=== PATIENT | female | born 1965 | race Two or more races ===

== ENCOUNTER 2024-10-26 19:02 | Inpatient (IN) | payer MEDICAID, OTHER ==
[~2024-10-26] VITALS: Ht 158.8 cm; Wt 99.6 kg
--- NOTE | 2024-10-26 20:25 | ED.PDOC ---
History of Present Illness HPI Comments 59-year-old female with PMHx CVA, CHF presents with a chief complaint of generalized weakness x 10 minutes prior to arrival with associated back pain. Patient reports that she was at dinner and began to feel increasingly weak. Patient reports that she started to feel a tingle in her face and and then back pain. Patient mentions that she was recently diagnosed with CHF. Patient is able to ambulate, but states that she right now feels extremely weak. Time Seen by MD: 20:09 Reviewed Notes: Medications, Allergies Allergies: Coded Allergies: Acetaminophen (Verified Allergy, Unknown, 10/26/24) Hydrocodone (Verified Allergy, Unknown, 10/26/24) Morphine (Verified Allergy, Unknown, 10/26/24) Information Source: Patient Mode of Arrival: Ambulatory Severity: Moderate Timing: Minutes Duration: Since onset Prehospital treatment: None Past Medical History PAST MEDICAL HISTORY: CHF, CVA Surgical History: Cholecystectomy, , Tubal Ligation Family History Family History: Reviewed,noncontributory to illness Social History Smoker: Non-Smoker Alcohol: Denies ETOH Use Drugs: Denies Drug Use Lives In: Home Constitutional: reports: weakness; denies: chills, diaphoresis, fatigue, fever, malaise, sweats, others EENTM: denies: blurred vision, double vision, ear bleeding, ear discharge, ear drainage, ear pain, ear ringing, eye pain, eye redness, hearing loss, mouth p ain, mouth swelling, nasal discharge, nose bleeding, nose congestion, nose pain, photophobia, tearing, throat pain, throat swelling, voice changes, others Respiratory: denies: cough, hemoptysis, orthopnea, SOB at rest, shortness of br eath, SOB with excertion, stridor, wheezing, others Cardiovascular: denies: chest pain, dizzy spells, diaphoresis, Dyspnea on exertion, edema, irregular heart beat, left arm pain, lightheadedness, palpitations, PND, syncope, others Gastrointestinal: denies: abdomen distended, abdominal pain, blood streaked bowels, constipated, diarrhea, dysphagia, difficulty swallowing, hematemesis, melena, nausea, poor appetite, poor fluid intake, rectal bleeding, rectal pain, vomiting, others Genitourinary: denies: burning, dysuria, flank pain, frequency, hematuria, incontinence, penile discharge, penile sore, pain, testicle pain, testicle swelling, urgency, others Neurological: denies: dizziness, fainting, headache, left sided numbness, left sided weakness, numbness, paresthesia, pre-existing deficit, right sided numbness, right sided weakness, seizure, speech problems, tingling, tremors, weakness, others Musculoskeletal: reports: back pain; denies: gout, joint pain, joint swelling, muscle pain, muscle stiffness, neck pain, others Integumetry: denies: bruises, change in color, change in hair/nails, dryness, laceration, lesions, lumps, rash, wounds, others Allergic/Immunocompromised: denies: Difficulty Healing, Frequent Infections, Hives, Itching, others Hematologic/Lymphatic: denies: anemia, blood clots, easy bleeding, easy bruisin g, swollen glands, others Endocrine: denies: excessive hunger, excessive sweating, excessive thirst, excessive urination, flushing, intolerance to cold, intolerance to heat, unexplained weight gain, unexplained weight loss, others Psychiatric: denies: anxiety, bipolar disorder, depression, hopeless, panic disorder, schizophrenia, sleepless, suicidal, others All Other Systems: Reviewed and Negative Physical Exam General Appearance: Mild Distress, Obese, Other (GENERALIZED WEAKNESS) HEENT: Normal ENT Inspection, Pharynx Normal, TMs Normal Neck: Full Range of Motion, Non-Tender, Normal, Normal Inspection Respiratory: Chest Non-Tender, Lungs Clear, No Accessory Muscle Use, No Respiratory Distress, Normal Breath Sounds Cardiovascular: No Edema, No JVD, No Murmur, No Gallop, Normal Peripheral Pulses, Regular Rate/Rhythm Breast Exam: Deferred Gastrointestinal: No Organomegaly, Non Tender, No Pulsatile Mass, Normal Bowel Sounds, Soft Genitalia: Deferred Pelvic: Deferred Rectal: Deferred Extremities: No calf tenderness, Normal capillary refill, Normal inspection, Normal range of motion, Non-tender, No pedal edema Musculoskeletal : Apperance: Normal Neurologic: Alert, hotel desk clerk II-XII nml as Tested, No Motor Deficits, Normal Affect, Normal Mood, No Sensory Deficits Cerebellar Function: Normal Reflexes: Normal Skin: Dry, Normal Color, Warm Lymphatic: No Adenopathy Was a procedure done? Was a procedure done?: No Differential Dx Considerations may include: Electrolyte abnormality, CVA, ACS, infectious etiology X-Ray, Labs, Meds, VS Vital Signs Date Time Temp Pulse Resp B/P (MAP) Pulse Ox O2 Delivery O2 Flow Rate FiO2 10/26/24 20:36 98.3 84 18 114/55 (74) 93 Lab Test 10/26/24 21:44 10/26/24 20:58 Range/Units Troponin I High Sensitivity 8 7 </=54 ng/L White Blood Count 13.1 H 4.4-10.8 10^3/uL Red Blood Count 4.66 4.5-5.90 10^6/uL Hemoglobin 13.9 13.5-17.5 g/dL Hematocrit 42.5 41.0-53.0 % Mean Corpuscular Volume 91.2 80.0-100.0 fL Mean Corpuscular Hemoglobin 29.8 28.0-32.0 pg Mean Corpuscular Hemoglobin Concent 32.6 32.0-36.0 g/dL Red Cell Distribution Width 13.9 11.8-14.3 % Platelet Count 268 140-450 10^3/uL Mean Platelet Volume 10.7 6.9-10.8 fL Neutrophils (%) (Auto) 73.7 37.0-80.0 % Lymphocytes (%) (Auto) 18.9 10.0-50.0 % Monocytes (%) (Auto) 5.2 0.0-12.0 % Eosinophils (%) (Auto) 1.0 0.0-7.0 % Basophils (%) (Auto) 1.2 0.0-2.0 % Neutrophils # (Auto) 9.7 H 1.6-8.6 10 ^3/uL Lymphocytes # (Auto) 2.5 0.4-5.4 10 ^3/uL Monocytes # (Auto) 0.7 0-1.3 10 ^3/uL Eosinophils # (Auto) 0.1 0-0.8 10 ^3/uL Basophils # (Auto) 0.2 0-0.2 10 ^3/uL Nucleated Red Blood Cells 0.0 % Sodium Level 131 L 136-145 mmol/L Potassium Level 4.4 3.5-5.1 mmol/L Chloride Level 100 98-107 mmol/L Carbon Dioxide Level 23 20-31 mmol/L Anion Gap 8 5-15 Blood Urea Nitrogen 33 H 9-23 mg/dL Creatinine 1.56 H 0.700-1.30 mg/dL Glomerular Filtration Rate Calc 51 >90 mL/min BUN/Creatinine Ratio 21.2 H 10.0-20.0 Serum Glucose 698 *H 74-106 mg/dL Calcium Level 9.0 8.7-10.4 mg/dL B-Type Natriuretic Peptide 44.86 0-100 pg/mL Time of 1ST Reevaluation: 20:39 Reevaluation 1ST: Unchanged Patient Education/Counseling: Diagnosis, Treatment, Prognosis Family Education/Counseling: No Family Present Departure 1 Departure Time of Disposition: 23:52 (Patient presented with generalized weakness today and should be admitted. Data: 1. I ordered and reviewed the result of at least 3 labs including a CBC, BMP, and troponin. 2. I independently interpreted the following tests: EKG which shows a sinus arrhythmia and a chest x-ray which shows benign chest and a CT head which shows chronic lacunar infarcts.Risk:This patient has a high risk of morbidity due to further diagnostic testing or treatment and may suffer from an acute cardiac, neurologic, or infectious disorder. Rationale: Patient should be admitted to the hospital for further management.) Impression: Primary Impression: Uncontrolled diabetes mellitus Qualified Codes: E11.65 - Type 2 diabetes mellitus with hyperglycemia Additional Impression: Generalized weakness Disposition: 09 ADMITTED INPATIENT Admit to: Med Surg Condition: Serious Critical Care Note Critical Care Time?: No Stability Stability form required: No I personally scribed for EDI MONREAL MD ([email or web address]) on 10/26/24 at 20:25. Electronically submitted by Martin Miles [email or web address]). EDI MONREAL MD Oct 26, 2024 20:25
--- NOTE | 2024-10-26 20:55 | DVH ---
CHEST RADIOGRAPH Indication: ams Technique: Single frontal view of the chest was obtained Comparison: None FINDINGS: Lines and Tubes: None Lungs: Clear Pleura: No effusion. No pneumothorax. Cardiomediastinal contours: Unremarkable Bones: Unremarkable IMPRESSION: 1. Clear lungs.
--- NOTE | 2024-10-26 21:01 | DVH ---
CT HEAD WITHOUT CONTRAST INDICATION: [facility] EXAM DATE: 10/26/2024 08:30 PM COMPARISON: None RADIATION DOSE: CTDIvol: 54.73 mGy, DLP: 768.0 mGy*cm Technique: CT scans of the head were obtained from the vertex to the skull base. Sagittal and coronal reconstructions were provided. All CT scans at this medical facility are performed using dose modulation techniques as appropriate t o a performed exam including the following: Automated exposure control was utilized; adjustment of th e MA and/or KV according to patient size; and use of iterative reconstruction technique. Findings/ IMPRESSION: Chronic lacunar infarct in the right griffith radiata. No intracranial hemorrhage, mass, midline shift, herniation. No large vessel infarct. The orbits are normal. Visualized soft tissues are unremarkable . Paranasal sinuses are clear. Mastoid air cells are clear. No acute osseous abnormalities. No acute intracranial abnormalities.
[2024-10-26 21:21] LABS: Basophils # (auto) 0.2 10 ^3/uL (0-0.2); Basophils % (auto) 1.2 % (0.0-2.0); Eosinophils # (auto) 0.1 10 ^3/uL (0-0.8); Hematocrit 42.5 % (41.0-53.0); Hemoglobin 13.9 g/dL (13.5-17.5); Lymphocytes # (auto) 2.5 10 ^3/uL (0.4-5.4); Lymphocytes % (auto) 18.9 % (10.0-50.0); Mean Corpuscular Hemoglobin 29.8 pg (28.0-32.0); Mean Corpuscular Hgb Conc. 32.6 g/dL (32.0-36.0); Mean Corpuscular Volume 91.2 fL (80.0-100.0); Monocytes # (auto) 0.7 10 ^3/uL (0-1.3); Monocytes % (auto) 5.2 % (0.0-12.0); Neutrophils # (auto) 9.7 10 ^3/uL (1.6-8.6); Neutrophils % (auto) 73.7 % (37.0-80.0); Platelet Count (auto) 268 10^3/uL (140-450); Red Blood Cells 4.66 10^6/uL (4.5-5.90); Red Cell Distribution Width 13.9 % (11.8-14.3); White Blood Cell 13.1 10^3/uL (4.4-10.8)
[2024-10-26 21:30] LABS: Chloride 100 mmol/L (98-107); Potassium 4.4 mmol/L (3.5-5.1)
[2024-10-26 21:31] LABS: Anion Gap 8 (5-15); Carbon Dioxide 23 mmol/L (20-31)
[2024-10-26 21:34] LABS: Sodium 131 mmol/L (136-145)
[2024-10-26 21:36] LABS: BUN/Creatinine Ratio 21.2 (10.0-20.0)
[2024-10-26 21:50] LABS: Blood Urea Nitrogen 33 mg/dL (9-23)
[2024-10-26 21:55] LABS: Glucose 698 mg/dL (74-106)
[2024-10-27] VITALS (7 sets, daily range): BP systolic 123–149; BP diastolic 43–74; PULSE 67–82; RESP 13–20; TEMP 97.8–98.5; O2SAT 90–99
[2024-10-27] MEDS ORDERED: LORazepam 0.5 MG TAB PO PRN (00:30)
[2024-10-27] MEDS ORDERED: DOCUSATE SOD 100 MG CAP PO PRN (00:30)
[2024-10-27] MEDS ORDERED: TEMAZEPAM 15 MG CAP PO PRN (00:30)
[2024-10-27] MEDS ORDERED: INSULIN LANTUS (GLARGINE) 1 /0.01ml (100units/ml) SC ONE (00:30)
[2024-10-27] MEDS ORDERED: MAALOX PLUS or MAALOX 30 ML PO PRN (00:30)
[2024-10-27] MEDS ORDERED: ONDANSETRON HCL 4 MG/2 ML VIAL IV PRN (00:30)
[2024-10-27] MEDS ORDERED: DEXTROSE (50%) 50ML SYRG IV PRN ×2 (00:30→11:15)
--- NOTE | 2024-10-27 00:38 | DVHHP2 ---
History of Present Illness Reason for Visit: General weakness Cardiovascular: CAD, CHF Endocrine: Diabetes Review of Systems Constitutional: Yes: Weakness; No: Fever, Chills, Sweats, Malaise, Other Eyes: No: Pain, Vision change, Conjunctivae inflammation, Eyelid inflammation, Other, Redness ENT: No: Ear pain, Ear discharge, Nose pain, Nose discharge, Nose congestion, Mouth pain, Mouth swelling, Throat pain, Throat swelling, Other Respiratory: No: Cough, Dry, Shortness of breath, SOB with excertion, Wheezing, Hemoptysis, Pleuritic Pain, Sputum, Wheezing, Other Cardiovascular: Palpitations; No: Chest Pain, Orthopnea, Paroxysmal Noc. Dyspnea, Edema, Lt Headedness, Other Gastrointestinal: Nausea, Vomiting, Abdominal Pain; No: Diarrhea, Constipation, Melena, Hematochezia, Other Genitourinary: Dysuria, Frequency, Incontinence; No Hematuria, No Retention, No Other Musculoskeletal: No: other, neck pain, shoulder pain, arm pain, back pain, hand pain, leg pain, foot pain Skin: No: Rash, Lesions, Jaundice, Bruising, Other Neurological: Weakness, Incoordination; No: Numbness, Change in speech, Confusion, Seizures, Other Allergies: Coded Allergies: Acetaminophen (Verified Allergy, Unknown, 10/26/24) Hydrocodone (Verified Allergy, Unknown, 10/26/24) Morphine (Verified Allergy, Unknown, 10/26/24) Medications Current Medications Medications Dose Ordered Sig/Carina Route Start Time Stop Time Status Last Admin Dose Admin Sodium Chloride 1,000 ml @ 500 mls/hr Q2H IV 10/27/24 00:30 10/27/24 04:29 UNV Sodium Chloride 1,000 ml @ 250 mls/hr Q4H IV 10/27/24 04:30 10/27/24 06:29 UNV Sodium Chloride 1,000 ml @ 150 mls/hr Q6H40M IV 10/27/24 06:30 UNV Insulin Human (Reg)/Sodium Chloride 100 ml @ 0.5 mls/hr Q24H IV 10/27/24 00:30 UNV Insulin Human Regular AC SC 10/27/24 07:00 UNV Dextrose 50 ml UD PRN IV 10/27/24 00:30 UNV Diagnostic Test (Pha) 1 strip Q90MIN 10/27/24 01:30 UNV Insulin Glargine 15 units DAILY SC 10/28/24 10:00 UNV Lorazepam 0.5 mg Q6HP PRN PO 10/27/24 00:30 UNV Al Hydrox/Mg Hydrox/Simethicone 30 ml Q6HP PRN PO 10/27/24 00:30 UNV Docusate Sodium 100 mg BIDPRN PRN PO 10/27/24 00:30 UNV Temazepam 15 mg QHSP PRN PO 10/27/24 00:30 UNV Ondansetron HCl 4 mg Q4HP PRN IV 10/27/24 00:30 UNV Ceftriaxone Sodium 50 ml @ 100 mls/hr DAILY IV 10/27/24 10:00 UNV Furosemide 40 mg BID IV 10/27/24 10:00 UNV Exam Vital Signs Vital Signs Date Time Temp Pulse Resp B/P (MAP) Pulse Ox O2 Delivery O2 Flow Rate FiO2 10/26/24 20:36 98.3 84 18 114/55 (74) 93 General Appearance: Oriented X3, Cooperative, moderate distress HEENT: Atraumatic, PERRLA, EOMI Respiratory: Clear to auscultation, Normal air movement Cardiovascular: Regular rate, Normal S1, Normal S2 Abdominal: Normal bowel sounds, Soft, No tenderness Extremities: No clubbing, No cyanosis, No edema Skin: No rashes, No breakdown Neuro: Normal gait, Normal speech Psych/Mental Status: Mood NL Labs/Xrays Labs Test 10/26/24 23:58 10/26/24 20:58 Range/Units White Blood Count 13.1 H 4.4-10.8 10^3/uL Red Blood Count 4.66 4.5-5.90 10^6/uL Hemoglobin 13.9 13.5-17.5 g/dL Hematocrit 42.5 41.0-53.0 % Mean Corpuscular Volume 91.2 80.0-100.0 fL Mean Corpuscular Hemoglobin 29.8 28.0-32.0 pg Mean Corpuscular Hemoglobin Concent 32.6 32.0-36.0 g/dL Red Cell Distribution Width 13.9 11.8-14.3 % Platelet Count 268 140-450 10^3/uL Mean Platelet Volume 10.7 6.9-10.8 fL Neutrophils (%) (Auto) 73.7 37.0-80.0 % Lymphocytes (%) (Auto) 18.9 10.0-50.0 % Monocytes (%) (Auto) 5.2 0.0-12.0 % Eosinophils (%) (Auto) 1.0 0.0-7.0 % Basophils (%) (Auto) 1.2 0.0-2.0 % Neutrophils # (Auto) 9.7 H 1.6-8.6 10 ^3/uL Lymphocytes # (Auto) 2.5 0.4-5.4 10 ^3/uL Monocytes # (Auto) 0.7 0-1.3 10 ^3/uL Eosinophils # (Auto) 0.1 0-0.8 10 ^3/uL Basophils # (Auto) 0.2 0-0.2 10 ^3/uL Nucleated Red Blood Cells 0.0 % Sodium Level 131 L 136-145 mmol/L Potassium Level 4.4 3.5-5.1 mmol/L Chloride Level 100 98-107 mmol/L Carbon Dioxide Level 23 20-31 mmol/L Anion Gap 8 5-15 Blood Urea Nitrogen 33 H 9-23 mg/dL Creatinine 1.56 H 0.700-1.30 mg/dL Glomerular Filtration Rate Calc 51 >90 mL/min BUN/Creatinine Ratio 21.2 H 10.0-20.0 Serum Glucose 698 *H 74-106 mg/dL Calcium Level 9.0 8.7-10.4 mg/dL B-Type Natriuretic Peptide 44.86 0-100 pg/mL Assessment/Plan Assessment/Plan Admit to [facility] General weakness HHS with uncontrolled diabetes Blood glucose around 700 No anion gap Aggressive IV hydration We will have to monitor for signs of acute fluid overload given history of CHF Patient will be aggressively placed on diuretics as well Insulin drip until patient has a more controlled blood sugars less than 200 After glucose has gone below 200s since patient does not have a current anion gap plan will be for downgrade I will be elevated white count UA not yet collected Strong suspicion for urinary tract infection We will start with IV antibiotics for coverage CT head shows chronic lacunar infarcts no acute changes No acute signs of new hemorrhagic strokes nor new acute infarcts patient with chronic damage suggesting both vascular dementia Also showing signs of acute chronic hypertension Plan discussed with: Patient My Orders Orders - MARGRET ASHLEY MD Procedure Category Date Status Time Insulin Drip Protocol CHRISTOPHE 10/27/24 In Process Sodium Chloride 0.9% PHA 10/27/24 Logged 00:30 Sodium Chloride 0.9% PHA 10/27/24 Logged 04:30 Sodium Chloride 0.9% PHA 10/27/24 Logged 06:30 Insulin Drip 100 PHA 10/27/24 Logged Unit/100ml (Myxredlin 00:30 Insulin R (Human) PHA 10/27/24 Logged (Insulin R) 07:00 Dextrose 50% Syringe PHA 10/27/24 Logged 00:30 Glucose Blood PHA 10/27/24 Logged (Accu-Chek Comfort 01:30 Complete Blood Count LAB 10/27/24 Logged 04:00 Basic Metabolic Panel LAB 10/27/24 Logged 04:00 Phosphorus LAB 10/27/24 Logged 04:00 Magnesium LAB 10/27/24 Logged 04:00 Neurological [facility] 10/27/24 In Process Assessment 00:[address] [facility] 10/27/24 Logged (Glargine) (Lantus) 00:[address] [facility] 10/28/24 Logged (Glargine) (Lantus) 10:00 Admit ADMIT 10/27/24 Transmitted 00:17 Code Status CODE 10/27/24 Transmitted 00:17 Vital Signs [facility] 10/27/24 In Process 00:17 Review Orders With [facility] 10/27/24 In Process Adm.Md 00:17 Consistent DIET 10/27/24 [facility]Di[facility] Breakfast Lorazepam Tablet [facility] 10/27/24 Logged (Ativan Tablet) 00:30 Alum & Mag [facility] 10/27/24 Logged Hydrox-Simethicone 00:[address] [facility] 10/27/24 Logged Capsule (Colace 00:30 Temazepam (Restoril) [facility] 10/27/24 Logged 00:30 Notify Md Of Changes [facility] 10/27/24 In Process From Base 00:17 Advance Directive [facility] 10/27/24 In Process 00:17 Patient Condition ORDERS 10/27/24 Transmitted 00:17 Allergies [facility] 10/27/24 In Process 00:[address] [facility] 10/27/24 Logged (Zofran) 00:30 Notify Md Of Changes [facility] 10/27/24 In Process From Base 00:17 Back Tender Fourdrinier For [facility] 10/27/24 In Process 24 Hours 00:17 Oxygen By Nasal RT 10/27/24 Transmitted Cannula 00:17 Drug Screen LAB 10/27/24 Logged 00:17 Urinalysis LAB 10/27/24 Logged 00:17 Ceftriaxone 1gm/50ml PHA 10/27/24 Logged D5w (Rocephin) 10:00 Furosemide Injection PHA 10/27/24 Logged (Lasix Injection) 10:00 Problem List: (1) Hyperosmolar hyperglycemic state (HHS) (2) Uncontrolled diabetes mellitus (3) Generalized weakness Date of Service: Oct 27, 2024 Billing Provider: MARGRET ASHLEY MD Common Visit Codes: [id number] INP/OBS CARE (HIGH) MARGRET ASHLEY MD Oct 27, 2024 00:38
[2024-10-27] MEDS: InsuLIN REG 1unit/0.01ml Soln (100units/ml) IV ONE (01:49)
[2024-10-27] MEDS: SODIUM CHLORIDE 0.9% 1,000 ML IV SCH ×4 (02:30→11:15)
[2024-10-27] MEDS: ACCU-CHEK COMFORT CURVE STRIP VI SCH ×2 (02:44→11:53)
[2024-10-27] MEDS: INSULIN DRIP 100 UNIT/100ML 100 ML IV SCH (02:45)
[2024-10-27 02:49] LABS: Urine Bacteria FEW /hpf (None Seen); Urine Blood Negative /uL (Negative); Urine Budding Yeast OCCASIONAL /hpf (None Seen); Urine Clarity Clear (Clear); Urine Color Colorless (Yellow); Urine Protein, UAD 1+ (Negative); Urine Specific Gravity 1.025 (1.001-1.035); Urine Urobilinogen Normal (Negative); Urine WBC 11 /hpf (0 - 5)
[2024-10-27 02:54] LABS: Amphetamine Screen, Urine Neg (NEGATIVE); Barbiturate Scree,Urine Neg (NEGATIVE); Benzodiazephine Screen, Urine Neg (NEGATIVE); Cannabinoid Screen, Urine Neg (NEGATIVE); Cocaine Screen, Urine Neg (NEGATIVE); Opiate Scree,Urine Neg (NEGATIVE); Phencyclidine Screen, Urine Neg (NEGATIVE)
[2024-10-27] MEDS ORDERED: GABA-1308 PO (04:09)
[2024-10-27] MEDS: GABAPENTIN 400 MG CAP PO ONE (05:02)
[2024-10-27 05:12] LABS: Basophils # (auto) 0.1 10 ^3/uL (0-0.2); Eosinophils # (auto) 0.2 10 ^3/uL (0-0.8); Eosinophils % (auto) 1.5 % (0.0-7.0); Hematocrit 39.6 % (36.0-46.0); Lymphocytes # (auto) 2.7 10 ^3/uL (0.4-5.4); Lymphocytes % (auto) 22.9 % (10.0-50.0); Mean Corpuscular Hemoglobin 29.5 pg (28.0-32.0); Mean Corpuscular Hgb Conc. 32.9 g/dL (32.0-36.0); Mean Corpuscular Volume 89.7 fL (80.0-100.0); Monocytes % (auto) 8.1 % (0.0-12.0); Neutrophils # (auto) 7.9 10 ^3/uL (1.6-8.6); Neutrophils % (auto) 66.5 % (37.0-80.0); Platelet Count (auto) 245 10^3/uL (140-450); Red Blood Cells 4.41 10^6/uL (4.0-5.20); Red Cell Distribution Width 13.7 % (11.8-14.3); White Blood Cell 11.9 10^3/uL (4.4-10.8)
[2024-10-27 05:25] LABS: BUN/Creatinine Ratio 28.1 (10.0-20.0)
[2024-10-27 05:26] LABS: Magnesium 2.3 mg/dL (1.6-2.6)
[2024-10-27 05:28] LABS: Phosphorus 4.1 mg/dL (2.4-5.1)
[2024-10-27 05:31] LABS: Anion Gap 8 (5-15); Calcium 9.3 mg/dL (8.7-10.4); Carbon Dioxide 24 mmol/L (20-31); Chloride 105 mmol/L (98-107); Potassium 3.7 mmol/L (3.5-5.1); Sodium 137 mmol/L (136-145)
[2024-10-27 05:32] LABS: Blood Urea Nitrogen 38 mg/dL (9-23); Glucose 244 mg/dL (74-106)
[2024-10-27] MEDS: InsuLIN REG 1unit/0.01ml Soln (100units/ml) SC SCH ×3 (06:30→22:18)
[2024-10-27] MEDS: INSULIN LANTUS (GLARGINE) 1 /0.01ml (100units/ml) SC SCH (10:35)
[2024-10-27] MEDS: cefTRIAXone 1GM/50ML D5W 50 ML IV SCH (11:23)
[2024-10-27] MEDS: FUROSEMIDE 40 MG/4 ML VIAL IV SCH (11:25)
--- NOTE | 2024-10-27 11:47 | DVHPN2 ---
Subjective Patient denies any symptoms at this time. Reports that she was trouble seeing, causing her to not take insulin as she is prescribed as well as checking her blood sugars. Reviewed: Care Plan, H&P, Labs, Medications Changes from previous H/P or p: Changes General: Per HPI Eyes: No Pain, No Vision change, No Conjunctivae inflammation, No Eyelid inflammation, No Other, No Redness ENT: No Ear pain, No Ear discharge, No Nose pain, No Nose discharge, No Nose congestion, No Mouth pain, No Mouth swelling, No Throat pain, No Throat swelling, No Other Cardiovascular: No Chest Pain; Palpitations; No Orthopnea, No Paroxysmal Noc. Dyspnea, No Edema, No Lt Headedness, No Other Respiratory: No Cough, No Dry, No Shortness of breath, No SOB with excertion, No Wheezing, No Hemoptysis, No Pleuritic Pain, No Sputum, No Other Gastrointestinal: Nausea, Vomiting, Abdominal Pain; No Diarrhea, No Constipation, No Melena, No Hematochezia, No Other Genitourinary: Dysuria, Frequency, Incontinence; No Hematuria, No Retention, No Other Musculoskeletal: No other, No neck pain, No shoulder pain, No arm pain, No back pain, No hand pain, No leg pain, No foot pain Skin: No Rash, No Lesions, No Jaundice, No Bruising, No Other Objective Vitals Vital Signs Date Time Temp Pulse Resp B/P (MAP) Pulse Ox O2 Delivery O2 Flow Rate FiO2 10/27/24 11:25 137/59 10/27/24 10:00 67 17 95 10/27/24 08:00 Room Air* 0 21 10/27/24 08:00 98.3 98.3 Intake/Output Intake and Output 10/27/24 07:00 Intake Total 1450 ml Balance 1450 ml Intake IV Total 1450 ml General Appearance: Alert, Oriented X3, Cooperative, No acute distress HEENT: PERRLA, Other (Visual acuity deficit) Lungs: Clear to auscultation, Normal air movement Cardiovascular: Normal S1, Normal S2 Abdomen: Normal bowel sounds, Soft, No tenderness Musculoskeletal: Normal sensory function, Normal motor function Neuro: Normal speech Psych/Mental Status: Mental status NL, Mood NL Medications Current Medications Medications Dose Ordered Sig/Carina Route Start Time Stop Time Status Last Admin Dose Admin Dextrose 50 ml UD PRN IV 10/27/24 00:30 Insulin Glargine 15 units DAILY SC 10/27/24 07:13 10/27/24 10:35 15 UNITS Lorazepam 0.5 mg Q6HP PRN PO 10/27/24 00:30 Al Hydrox/Mg Hydrox/Simethicone 30 ml Q6HP PRN PO 10/27/24 00:30 Docusate Sodium 100 mg BIDPRN PRN PO 10/27/24 00:30 Temazepam 15 mg QHSP PRN PO 10/27/24 00:30 Ondansetron HCl 4 mg Q4HP PRN IV 10/27/24 00:30 Ceftriaxone Sodium 50 ml @ 100 mls/hr DAILY IV 10/27/24 10:00 10/27/24 11:23 100 MLS/HR Sodium Chloride 1,000 ml @ 100 mls/hr Q10H IV 10/27/24 11:15 Diagnostic Test (Pha) 1 strip ACHS 10/27/24 11:30 Insulin Human Regular HS SC 10/27/24 22:00 Insulin Human Regular AC SC 10/27/24 11:30 Dextrose 50 ml UD PRN IV 10/27/24 11:15 Laboratory Results Laboratory Tests 10/27/24 04:38 Chemistry Test 10/26/24 20:58 10/27/24 04:38 Calcium Level 9.0 mg/dL (8.7-10.4) 9.3 mg/dL (8.7-10.4) Magnesium Level 2.3 mg/dL (1.6-2.6) Phosphorus Level 4.1 mg/dL (2.4-5.1) Cardiac Markers Test 10/26/24 20:58 B-Type Natriuretic Peptide 44.86 pg/mL (0-100) Urinalysis Test 10/27/24 02:15 Urine Color Colorless (Yellow) Urine Clarity Clear (Clear) Urine pH 5.0 (5.0-9.0) Urine Specific [place] 1.025 (1.001-1.035) Urine Protein 1+ (Negative) H Urine Ketones Negative (Negative) Urine Blood Negative /uL (Negative) Urine Nitrite Negative (Negative) Urine Bilirubin Negative (Negative) Urine Urobilinogen Normal mg/dL (Negative) Urine Leukocyte Esterase Negative /uL (Negative) Urine RBC 1 /hpf (0 - 4) Urine WBC 11 /hpf (0 - 5) Urine Squamous Epithelial Cells Few /hpf (<5) Urine Bacteria Few /hpf (None Seen) H Urine Yeast (Budding) Occasional /hpf (None Urine Glucose 4+ mg/dL (Normal) H Labs and/or images reviewed: Labs reviewed by me, Image(s) reviewed by me Assessment/Plan Assessment/Plan Impression: -severe hyperglycemia secondary to noncompliance -diabetic retinopathy -acute kidney injury, vasomotor nephropathy, diabetic nephropathy -complicated cystitis -primary hypertension Plan: -stop insulin drip, start regular insulin sliding scale, a.c. HS coverage. Continue Lantus 15 units daily -diabetic education/educator consultation -check A1c -continue IV Rocephin, urine culture pending -repeat labs in a.m. -continue home antihypertensives, hold Roly inhibitor -DC planning in a.m. Total time spent with patient discussing and formulating plan of care: 35 minutes. This medical document was created using an electronic medical record system with [employer] dictation system. Although this document has been carefully reviewed, there may still be some phonetic and typographical errors. These areas are purely typographical due to imperfections of the software programs, and do not reflect any compromise in the patient's medical care. Plan discussed with: Patient, Other (RN) My Orders Orders - DIA TIRADO NP Procedure Category Date Status Time Sodium Chloride 0.9% PHA 10/27/24 In Process 11:15 Glucose Blood PHA 10/27/24 In Process (Accu-Chek Comfort 11:30 Insulin R (Human) PHA 10/27/24 In Process (Insulin R) 22:00 Insulin R (Human) PHA 10/27/24 In Process (Insulin R) 11:30 Dextrose 50% Syringe PHA 10/27/24 In Process 11:15 Transfer Orders XFER 10/27/24 Transmitted 11:01 Date of Service: Oct 27, 2024 Billing Provider: DIA TIRADO NP Common Visit Codes: [id number] INP/OBS CARE(HIGH) DIA TIRADO NP Oct 27, 2024 11:47
[2024-10-28] VITALS (7 sets, daily range): BP systolic 120–150; BP diastolic 40–75; PULSE 64–79; RESP 16–20; TEMP 98–99; O2SAT 94–96
--- NOTE | 2024-10-28 08:33 | DVHDS2 ---
Discharge Summary Date of Admission Oct 27, 2024 at 00:22 Date of Discharge: Oct 28, 2024 Admitting Diagnosis Hyperglycemia Labs/Diagnostic Data: Laboratory Results Test 10/28/24 06:23 10/27/24 04:58 10/27/24 04:38 10/27/24 02:15 POC Glucose 210 mg/dl (70-106) Hemoglobin A1c 13.1 % A1C (<5.7) White Blood Count 11.9 10^3/uL (4.4-10.8) Red Blood Count 4.41 10^6/uL (4.0-5.20) Hemoglobin 13.0 g/dL (12.2-16.2) Hematocrit 39.6 % (36.0-46.0) Mean Corpuscular Volume 89.7 fL (80.0-100.0) Mean Corpuscular Hemoglobin 29.5 pg (28.0-32.0) Mean Corpuscular Hemoglobin Concent 32.9 g/dL (32.0-36.0) Red Cell Distribution Width 13.7 % (11.8-14.3) Platelet Count 245 10^3/uL (140-450) Mean Platelet Volume 9.9 fL (6.9-10.8) Neutrophils (%) (Auto) 66.5 % (37.0-80.0) Lymphocytes (%) (Auto) 22.9 % (10.0-50.0) Monocytes (%) (Auto) 8.1 % (0.0-12.0) Eosinophils (%) (Auto) 1.5 % (0.0-7.0) Basophils (%) (Auto) 1.0 % (0.0-2.0) Neutrophils # (Auto) 7.9 10 ^3/uL (1.6-8.6) Lymphocytes # (Auto) 2.7 10 ^3/uL (0.4-5.4) Monocytes # (Auto) 1.0 10 ^3/uL (0-1.3) Eosinophils # (Auto) 0.2 10 ^3/uL (0-0.8) Basophils # (Auto) 0.1 10 ^3/uL (0-0.2) Nucleated Red Blood Cells 0.0 % Sodium Level 137 mmol/L (136-145) Potassium Level 3.7 mmol/L (3.5-5.1) Chloride Level 105 mmol/L (98-107) Carbon Dioxide Level 24 mmol/L (20-31) Anion Gap 8 (5-15) Blood Urea Nitrogen 38 mg/dL (9-23) Creatinine 1.35 mg/dL (0.550-1.02) Glomerular Filtration Rate Calc 45 mL/min (>90) BUN/Creatinine Ratio 28.1 (10.0-20.0) Serum Glucose 244 mg/dL (74-106) Calcium Level 9.3 mg/dL (8.7-10.4) Phosphorus Level 4.1 mg/dL (2.4-5.1) Magnesium Level 2.3 mg/dL (1.6-2.6) Urine Color Colorless (Yellow) Urine Clarity Clear (Clear) Urine pH 5.0 (5.0-9.0) Urine Specific [place] 1.025 (1.001-1.035) Urine Protein 1+ (Negative) Urine Ketones Negative (Negative) Urine Blood Negative /uL (Negative) Urine Nitrite Negative (Negative) Urine Bilirubin Negative (Negative) Urine Urobilinogen Normal mg/dL (Negative) Urine Leukocyte Esterase Negative /uL (Negative) Urine RBC 1 /hpf (0 - 4) Urine WBC 11 /hpf (0 - 5) Urine Squamous Epithelial Cells Few /hpf (<5) Urine Bacteria Few /hpf (None Seen) Urine Yeast (Budding) Occasional /hpf (None Urine Glucose 4+ mg/dL (Normal) Urine Opiates Screen Neg (NEGATIVE) Urine Fentanyl Screen Neg (NEGATIVE) Urine Barbiturates Screen Neg (NEGATIVE) Urine Phencyclidine Screen Neg (NEGATIVE) Urine Amphetamines Screen Neg (NEGATIVE) Urine Benzodiazepines Screen Neg (NEGATIVE) Urine Cocaine Screen Neg (NEGATIVE) Urine Cannabinoids Screen Neg (NEGATIVE) Test 10/26/24 23:58 10/26/24 20:58 Troponin I High Sensitivity 8 ng/L (</=34) B-Type Natriuretic Peptide 44.86 pg/mL (0-100) Other Laboratory Tests 10/27/24 04:38 Brief Hx & Hospital Course: Patient was a 59-year-old female admitted to the hospital with complaints of generalized weakness, worsening visual deficits, and reported elevated blood sugars at home. Apparently, the patient went out to eat with her daughter and had a high carbohydrate diet including pasta and bread. Patient also reports that given her diabetic retinopathy and? Glaucoma, the patient has difficulty seeing her glucometer at home as well as injecting insulin when her daughter is in at home. She states that this has been disclosed to her PCP, and is awaiting cardiac clearance for eye surgery. The patient was blood sugars have improved. Patient has had adequate IV hydration. She will be discharged home with home health services to assist monitoring and managing her blood sugars at home. She will also follow up with her PCP in one week. Physical examination General: Alert and Oriented x3. No acute distress. Well-nourished. Obese Eyes: EOMI. Anicteric. HENT: Moist mucous membranes. Lungs: Clear to auscultation bilaterally. No accessory muscle use. Cardiovascular: Regular rate and rhythm. No murmur. No JVD. Abdomen: Soft, non-tender and non-distended. No palpable masses. Extremities: No edema. Non-tender. Skin: No rashes or lesions. Warm. Neurologic: No focal neurological deficits. CN II-XII grossly intact, but not individually tested. Psychiatric: Cooperative. Appropriate mood and affect. Total time spent with patient discussing and formulating plan of care: 35 minutes. This medical document was created using an electronic medical record system with [employer] dictation system. Although this document has been carefully reviewed, there may still be some phonetic and typographical errors. These areas are purely typographical due to imperfections of the software programs, and do not reflect any compromise in the patient's medical care. Condition at Discharge: Poor Final Diagnosis/Problems List Hyperglycemia secondary to medication noncompliance Secondary Diagnosis: -severe hyperglycemia secondary to noncompliance -diabetic retinopathy -acute kidney injury, vasomotor nephropathy, diabetic nephropathy -complicated cystitis -primary hypertension Discharge Disposition: Home with Health Services Discharge Instruct/Medications Diet: Consistent carbohydrate, Cardiac 2g Na,low cholest Activity: No Restrictions, As Tolerated Follow Up/Referral: Follow up with PCP, Dr. Murcia in one week Medications: Continue all previous home medications. Check blood sugars 3 times a day. 36 Discharge Statement: "Patient was advised to return to the ER or call 911 if any headaches, dizziness, shortness of breath, chest pain, abdominal pain, bleeding, fevers, or worsening of medical condition. Patient was counseled about treatment plan, medications, possible side effects, patientverbalized understanding. All questions were answered to the best of my ability. This discharge took greater then 30 minutes in planning, reviewing documentation, counseling the patient, and discussing with other team members." ASSESSMENT ASSESSMENT Assessment Hyperglycemia secondary to medication noncompliance Date of Service: Oct 28, 2024 Billing Provider: DIA TIRADO NP Common Visit Codes: 73054-LTW/OBS DISCH DAY >30min DIA TIRADO NP Oct 28, 2024 08:33
[2024-10-28] MEDS: INSULIN LANTUS (GLARGINE) 1 /0.01ml (100units/ml) SC SCH (12:08)
== END 2024-10-28 17:45 | disposition home health service (06) | DRG 420 ==
LOC: ER 19:02 → EDSEX 19:02 → TELE 10-27 00:22 → CENTRAL 10-27 15:32
PROVIDERS: ADMIT Hospitalist; ATTEND Nurse Practitioner Acute Care
DX: E11.00 Type 2 diabetes mellitus with hyperosmolarity without nonketotic hyperglycemic-hyperosmolar coma (NKHHC) (principal); N17.0 Acute kidney failure with tubular necrosis; E11.21 Type 2 diabetes mellitus with diabetic nephropathy; I50.9 Heart failure, unspecified; I11.0 Hypertensive heart disease with heart failure; E11.319 Type 2 diabetes mellitus with unspecified diabetic retinopathy without macular edema; I25.10 Atherosclerotic heart disease of native coronary artery without angina pectoris; N30.90 Cystitis, unspecified without hematuria; Z86.73 Personal history of transient ischemic attack (TIA), and cerebral infarction without residual deficits; Z88.6 Allergy status to analgesic agent; Z88.5 Allergy status to narcotic agent; Z90.49 Acquired absence of other specified parts of digestive tract; Z91.148 Patient's other noncompliance with medication regimen for other reason; Z91.199 Patient's noncompliance with other medical treatment and regimen due to unspecified reason
CPT/HCPCS: 36415; 70450; 71045; 80048; 80307; 81001; 82962; 83036; 83735; 83880; 84100; 84484; 85025; G0378; J1815